=== PATIENT | female | born 1960 | race Caucasian/White ===

== ENCOUNTER → 2023-12-07 10:13 | Outpatient (REF) | payer MEDICARE, BC, SELFPAY | LOC: RAD 10:13 | PROVIDERS: ATTENDING PHYSICIAN Internal Medicine; FAMILY PHYSICIAN Internal Medicine | DX: Z13.820 Encounter for screening for osteoporosis (principal); Z78.0 Asymptomatic menopausal state; M41.86 Other forms of scoliosis, lumbar region; Z79.52 Long term (current) use of systemic steroids | CPT/HCPCS: 77080 ==

== ENCOUNTER → 2024-02-11 10:24 | Outpatient (REF) | payer MEDICARE, BC, SELFPAY | LOC: RSP 10:24 | PROVIDERS: ATTENDING PHYSICIAN Internal Medicine; FAMILY PHYSICIAN Family Medicine; REFERRING PHYSICIAN Neurological Surgery | DX: D86.9 Sarcoidosis, unspecified (principal); M47.12 Other spondylosis with myelopathy, cervical region; M41.55 Other secondary scoliosis, thoracolumbar region | CPT/HCPCS: 94727; 94729; 72050; 72100; 88738; 94060 ==

== ENCOUNTER → 2024-07-22 12:58 | Outpatient (REF) | payer MEDICARE, BC, SELFPAY | LOC: WDC 12:58 | PROVIDERS: ATTENDING PHYSICIAN Obstetrics & Gynecology; FAMILY PHYSICIAN Family Medicine | DX: Z12.31 Encounter for screening mammogram for malignant neoplasm of breast (principal) | CPT/HCPCS: 77063; 77067 ==

== ENCOUNTER → 2024-08-02 12:53 | Outpatient (REF) | payer MEDICARE, BC, SELFPAY | LOC: RSP 12:53 | PROVIDERS: ATTENDING PHYSICIAN Internal Medicine; FAMILY PHYSICIAN Family Medicine | DX: D86.9 Sarcoidosis, unspecified (principal) | CPT/HCPCS: 94727; 94729; 88738; 94060 ==

== ENCOUNTER → 2024-12-09 16:27 | Outpatient (REF) | payer MEDICARE, BC, SELFPAY | LOC: RAD 16:27 | PROVIDERS: ATTENDING PHYSICIAN Internal Medicine; FAMILY PHYSICIAN Family Medicine | DX: D86.9 Sarcoidosis, unspecified (principal) | CPT/HCPCS: 71250 ==

== ENCOUNTER → 2025-01-24 08:42 | Outpatient (REF) | payer MEDICARE, BC, SELFPAY | LOC: RSP 08:42 | PROVIDERS: ATTENDING PHYSICIAN Internal Medicine; REFERRING PHYSICIAN Family Medicine | DX: D86.9 Sarcoidosis, unspecified (principal) | CPT/HCPCS: 94727; 94729; 88738; 94060 ==

== ENCOUNTER 2025-06-12 06:33 | Day surgery (SDC) | payer MEDICARE, BC, SELFPAY | END 2025-06-12 14:34 | disposition home or self-care (01) | LOC: GI 06:33 | PROVIDERS: ATTENDING PHYSICIAN Internal Medicine Gastroenterology | DX: Z12.11 Encounter for screening for malignant neoplasm of colon (principal); K62.1 Rectal polyp; Z86.0100 Personal history of colon polyps, unspecified; Z80.0 Family history of malignant neoplasm of digestive organs; K57.30 Diverticulosis of large intestine without perforation or abscess without bleeding; K64.8 Other hemorrhoids | CPT/HCPCS: 45380; 88305 ==